=== PATIENT | male | born 1955 | race American Indian/Alaskan Native ===

== ENCOUNTER 2016-06-14 10:23 | Day surgery (SDC) | payer OTHER ==
[~2016-06-14 10:23] MED LIST: MARCAINE 0.25% INFILTRATI ONE; XYLOCAINE 1% 20 mL INFILTRATI ONE
[2016-06-14] MEDS ORDERED: DILAUDID IV PRN (10:49)
[2016-06-14] MEDS ORDERED: ZOFRAN IV PRN (10:49)
[2016-06-14] MEDS ORDERED: SUBLIMAZE IV PRN (10:49)
--- NOTE | 2016-06-14 10:54 | Anesthesia Day of Surgery ---
Anesthesia Day of Surgery - Day of Surgery Patient Examined: Yes Patient H&P Reviewed: Yes Patient is NPO: Yes Beta Blockers: No Cardiac Clearance: No Pulmonary Clearance: No
--- NOTE | 2016-06-14 10:55 | Anesthesia Consultation ---
Anesthesia Consult and Med Hx Date of service: 06/14/16 - Airway Anesthetic Teeth Evaluation: Good ROM Head & Neck: Adequate Mental/Hyoid Distance: Adequate Mallampati Class: Class II Intubation Access Assessment: Probably Good - Pulmonary Exam CTA: Yes (clear blbs) - Cardiac Exam Cardiac Exam: RRR - Pre-Operative Health Status ASA Pre-Surgery Classification: ASA1, ASA2 Proposed Anesthetic Plan: General - Pulmonary Hx Smoking: Yes (STOPPED X 25 YRS- 1 PACK PER WEEK) Hx Sleep Apnea: No (JAY JAY PRE SCREEN HIGH RISK) - Cardiovascular System Hx Hypertension: No Hx Heart Murmur: Yes (MILD- NO PROBLEMS) - Gastrointestinal Hx Gastroesophageal Reflux Disease: No - Other Systems Hx Cancer: No
[2016-06-14] MEDS ORDERED: PEPCID PO NR (11:00)
[2016-06-14] MEDS ORDERED: ANCEF/STERILE WATER 2 GM/20 ML 2 GM/20 ML SYRINGE IV NR (11:00)
[2016-06-14] MEDS ORDERED: VERSED IV NR (11:00)
[2016-06-14] MEDS ORDERED: NACL 0.9% 1000 ML 1,000 ML IV SCH (11:00)
[2016-06-14] MEDS ORDERED: NACL BACTERIOSTATIC INFILTRATI ONE (11:14)
[2016-06-14] MEDS ORDERED: REGLAN ONE (11:42)
[2016-06-14] MEDS ORDERED: ZOFRAN ONE (11:42)
[2016-06-14] MEDS ORDERED: SUBLIMAZE ONE (11:42)
[2016-06-14] MEDS ORDERED: DIPRIVAN 10 MG/ML IV ONE (11:42)
[2016-06-14] MEDS ORDERED: XYLOCAINE MPF 2% ONE (11:43)
[2016-06-14] MEDS ORDERED: XYLOCAINE 1%/ EPI 1:100,000 INFILTRATI ONE (12:01)
[2016-06-14] MEDS ORDERED: XYLOCAINE 1% 20 mL ONE (12:02)
[2016-06-14] MEDS ORDERED: MARCAINE-EPI/PF 0.25%-1:200,000 INFILTRATI ONE ×2 (12:03→12:05)
[2016-06-14] MEDS ORDERED: ePHEDrine SULFATE ONE (12:24)
[2016-06-14] MEDS ORDERED: LACTATED RINGERS 1,000 ML ONE (12:43)
[2016-06-14] MEDS ORDERED: NACL 0.9% IR ONE (13:18)
--- NOTE | 2016-06-14 13:50 | Discharge Summary ---
Short Stay Discharge Plan Activity: other (no straining ) Weight Bearing Status: Full Weight Bearing Diet: low fat, low cholesterol, low salt Wound: change dressing (q day) Special Instructions: other (ice packs ) Follow up with: RADHA NEAL MD [Primary Care Provider] - 7 Days BEL FOREMAN MD [Staff Physician] - 06/16/16
--- NOTE | 2016-06-14 13:53 | Post Operative Note ---
Date of procedure: 06/14/16 Pre-op diagnosis: huge r hydrocele Post-op diagnosis: same Findings: as above Procedure: r hydrocelectomy Anesthesia: GETA Surgeon: BEL FOREMAN Estimated blood loss: minimal Pathology: list (sac) Specimen disposition: to lab Condition: stable Disposition: PACU
[2016-06-14] MEDS ORDERED: PERCOCET 5/325 PO PRN (13:56)
--- NOTE | 2016-06-14 16:06 | Operative Report ---
PREOPERATIVE DIAGNOSIS: Huge right hydrocele. POSTOPERATIVE DIAGNOSES: Huge right hydrocele. PROCEDURE: Right hydrocelectomy. SURGEON: Diaz Rubin MD ANESTHESIA: General. FINDINGS: This is a gentleman with the huge 9 cm hydrocele. It is tender and tense. He now presents for repair. DESCRIPTION OF PROCEDURE: The patient brought to the operating room and placed on the operating table. Following induction of anesthesia, placed in supine position, prepped and draped in usual sterile fashion. An oblique incision made over the right hemiscrotum, carried down through multiple layers of thickened scrotal fascia. This was carried down to tunica vaginalis. The vaginalis was freed from the surrounding fascia and delivered. The vaginalis was opened and approximately 400 mL of clear fluid was obtained. Testis appeared normal. The appendix was fulgurated, which was quite sloppy. A large amount of excess vaginalis was excised with the cautery and oversewn with 3-0 chromic. The patient tolerated the procedure well. Wound was irrigated. A Kavitha drain was placed and secured in the dependent portion of the scrotum. Fascia was approximated with 3-0 chromic and skin with 3-0 chromic in interrupted fashion. The patient tolerated the procedure well. Minimal blood loss. Was brought to recovery in stable condition. JOB# [id number] CALOS/OSKAR
[2016-06-14 17:39] VITALS: BP 125/78
== END 2016-06-14 17:39 | disposition home or self-care (01) ==
LOC: OR 10:23
PROVIDERS: ATTEND Urology
DX: N43.2 Other hydrocele (principal); G47.33 Obstructive sleep apnea (adult) (pediatric); Z87.891 Personal history of nicotine dependence
CPT/HCPCS: 55040; 88302; J0690; J1170; J2250; J2405; J2704; J2765; J3010; J7030; J7120